=== PATIENT | female | born 1995 | race Caucasian/White ===

== ENCOUNTER → 2017-11-21 | Outpatient (CLI) | payer BC, OTHER ==
--- NOTE | 2017-11-21 21:45 | US ---
EXAMINATION TYPE: US venous doppler duplex LE RT DATE OF EXAM: 11/21/2017 3:38 PM COMPARISON: NONE CLINICAL HISTORY: M79.606 Right Leg pain. Right thigh warmness for 2 days SIDE PERFORMED: right TECHNIQUE: The lower extremity deep venous system is examined utilizing real time linear array sonog melissa with graded compression, doppler sonography and color-flow sonography. VESSELS IMAGED: External Iliac Vein (EIV) Common Femoral Vein Deep Femoral Vein Greater Saphenous Vein * Femoral Vein Popliteal Vein Small Saphenous Vein * Proximal Calf Veins (* superficial vessels) Right Leg: No evidence of DVT IMPRESSION: 1. Right lower extremity negative for deep venous thrombosis by ultrasound.
== END | disposition home or self-care (01) ==
LOC: RADUSWWP 15:16
PROVIDERS: ATTEND Pediatrics
DX: M79.604 Pain in right leg (principal)

== ENCOUNTER → 2019-02-19 | Outpatient (CLI) | payer OTHER ==
--- NOTE | 2019-02-19 09:51 | USB ---
Reason for exam: clinical finding. Indicated problem(s): pain in the right breast. Physical Findings: Nurse Summary: Patient complains of sharp pains right breast x 2-3 weeks (nurse galina). US Breast RT Right complete breast ultrasound includes all four quadrants, the retroareolar region and axilla. Finding demonstrates no cystic or solid lesion seen. Benign appearing prominent 1.1cm lymph node in the axilla with uniform cortex. These results were verbally communicated with the patient and result sheet given to the patient on 02/19/19. ASSESSMENT: Benign, BI-RAD 2 RECOMMENDATION: Routine screening mammogram of both breasts at age 38. (or sooner if clinically indicated) Manage on a clinical basis with regard to right breast pain.
== END | disposition home or self-care (01) ==
LOC: RADUSWWP 08:50
PROVIDERS: ATTEND Pediatrics
DX: N64.4 Mastodynia (principal)

== ENCOUNTER → 2021-08-01 | Outpatient (CLI) | payer BC ==
--- NOTE | 2021-08-02 08:24 | XR ---
EXAMINATION TYPE: XR chest 2V DATE OF EXAM: 08/01/2021 COMPARISON: 03/28/2012 TECHNIQUE: PA and lateral views submitted. HISTORY: Shortness of breath FINDINGS: The lungs are clear and there is no pneumothorax, pleural effusion, or focal pneumonia. Heart size mildly prominent. No overt failure. Mild coarsening of the interstitium. IMPRESSION: 1. Mild coarsened interstitium may be related to reduced inspiration rather than bronchitis or early viral bronchiolitis correlate clinically..
== END | disposition home or self-care (01) ==
LOC: RADXRMAIN 15:54
PROVIDERS: ATTEND Pediatrics
DX: R06.02 Shortness of breath (principal)
CPT/HCPCS: 71046

== ENCOUNTER → 2022-08-09 | Outpatient (CLI) | payer BC ==
[2022-08-09 13:25] VITALS: BP 135/89; PULSE 111; TEMP 99.8; BMI 46.0
--- NOTE | 2022-08-09 15:35 | P.HPBAR ---
Bariatric H&P - History & Physicial H&P Date: 08/09/22 History & Physicial: Visit/CC: initial clinic visit Patient initial contact: Initial weight: Initial weight in pounds: Height: 5 ft 4.25 in Initial BMI: Last weight: Current weight: 122.47 kg Current weight in pounds: 270.00 Current BMI: 46.0 [place] body weight (based on NIH guidelines): 54.998 kg Excess body weight loss: The patient is a 27 year-old F who presents for Bariatric Assessment. Patient presents today to discuss bariatric surgery options. The patient comes in interested in sleeve gastrectomy. The patient apparently has a friend of the family that had a sleeve gastrectomy recently. Her BMI is 46. No tobacco use. Patient with past history of asthma and irritable bowel syndrome. Patient says she does have pauses when she is breathing at night during sleep and has been told she needs a sleep study. She's tried a variety of diets and also medications including Adipex contrave, and seccenda. She has had minimal weight loss with those. Denies heartburn. No DVT history. Only abdominal surgery lap aroscopic cholecystectomy. Heart rate today slightly elevated. Review of Systems The patient denies any acute changes in vision or hearing, no dysphagia or odynophagia, no chest pain or shortness of breath, no dysuria or hematuria, no headache, no runny nose, no rectal bleeding or melena, no unexplained weight loss Past Medical History Past Medical History: Asthma History of Any Multi-Drug Resistant Organisms: None Reported Past Surgical History: No Surgical Hx Reported Additional Past Surgical History / Comment(s): luis lee 2014 Past Anesthesia/Blood Transfusion Reactions: No Reported Reaction Past Psychological History: No Psychological Hx Reported Smoking Status: Never smoker Past Alcohol Use History: None Reported Past Drug Use History: None Reported Surgical - Exam Vital Signs Temp Pulse BP 99.8 F H 111 H 135/89 08/09/22 13:18 08/09/22 13:18 08/09/22 13:18 Physical exam: General: Well-developed, well-nourished HEENT: Normocephalic, sclerae nonicteric Abdomen: Nontender, nondistended Extremities: No edema Neuro: Alert and oriented Bariatric Assessment & Plan (1) Morbid obesity with BMI of 45.0-49.9, adult Narrative/Plan: 27-year-old female with morbid obesity. Patient is interested in sleeve gastrectomy at this time. Patient is a good candidate for that surgical procedure. We discussed the risks benefits and average weight loss of both gastric bypass in sleeve gastrectomy in detail. We discussed that sleep study would be potentially beneficial and we'll try to have that arranged for her. Patient will require preoperative upper endoscopy and preoperative medical clearance from her primary care physician. She will return to the office after EGD to discuss surgical risks in even further detail. Status: Acute Bariatric Checklist Checklist: Plan: Checklist: EGD: 1. Hiatal hernia: 2. H. Pylori: HgbA1c: Vitamin D: Smoking: Never smoker Primary care physician referral: Psychiatry clearance: Cardiology clearance: Sleep study: Diet journal: VTE risk score: VTE risk level: Rehab needs at discharge:
== END | disposition home or self-care (01) ==
LOC: BARWHC3 12:46
PROVIDERS: ATTEND Surgery
DX: E66.01 Morbid (severe) obesity due to excess calories (principal); Z68.42 Body mass index [BMI] 45.0-49.9, adult
CPT/HCPCS: 99211

== ENCOUNTER → 2022-08-13 | Outpatient (CLI) | payer BC ==
[2022-08-13 14:42] LABS: HCT 37.2 % (37.2-46.3); MCHC 32.3 g/dL (32.0-37.0); MCV 83.6 fL (80.0-97.0); Mean Platelet Volume 9.9 fL (9.5-12.2); NRBC Per 100 WBC 0 /100 WBCS (0.0-0.0); Platelet Count 413 X 10*3/uL (140-440); RBC 4.45 X 10*6/uL (4.10-5.20); RDW 13.5 % (11.5-14.5); WBC 7.07 X 10*3/uL (4.50-10.00)
[2022-08-13 14:53] LABS: African American GFR (CKD) 145.6 (60.0-200.0); Albumin 4.2 g/dL (3.8-4.9); Albumin/Globulin Ratio 1.46 (1.60-3.17); Anion Gap 9.7 mmol/L (10.00-18.00); BUN/Creat Ratio 16.07 Ratio (12.00-20.00); Blood Urea Nitrogen 9.1 mg/dL (9.0-27.0); Calcium 8.9 mg/dL (8.7-10.3); Carbon Dioxide 24.1 mmol/L (20.0-27.5); Globulin 2.9 g/dL (1.6-3.3); Non-African American GFR(CKD) 125.6 (60.0-200.0); Potassium 4.5 mmol/L (3.5-5.5); Total Bilirubin 0.4 mg/dL (0.30-1.20); Total Protein 7.1 g/dL (6.2-8.2)
[2022-08-16 06:42] LABS: Anabasine Urine <2.0 ng/mL (<2.0)
== END | disposition home or self-care (01) ==
LOC: LABWHC1 09:02
PROVIDERS: ATTEND Surgery
DX: Z71.51 Drug abuse counseling and surveillance of drug abuser (principal); E66.01 Morbid (severe) obesity due to excess calories; K90.89 Other intestinal malabsorption; E55.9 Vitamin D deficiency, unspecified
CPT/HCPCS: 36415; 80053; 80323; 82306; 82607; 82746; 83036; 83540; 84425; 85027; 93005

== ENCOUNTER 2022-09-18 10:11 | Day surgery (SDC) | payer BC ==
[~2022-09-18 10:11] MED LIST: LACTATED RINGERS 1,000 ML IV SCH; LIDOCAINE 1% (10MG/ML) FOR IV START INTRADERMA PRN
[2022-09-18 10:47] VITALS: RESP 18; TEMP 98.1
[2022-09-18] MEDS ORDERED: MIDAZOLAM 2 MG/2 ML VIAL ONE (11:23)
[2022-09-18] MEDS ORDERED: fentaNYL (PF) 50 MCG/ML 2 ML AMP ONE (11:23)
[2022-09-18] MEDS ORDERED: PROPOFOL 10 MG/ML 20 ML VIAL IV ONE (11:23)
[2022-09-18] MEDS ORDERED: LIDOCAINE 2% INJ 20 MG/ML (2 ML VIAL) ONE (11:23)
--- NOTE | 2022-09-18 11:27 | P.GSHP ---
History of Present Illness H&P Date: 09/18/22 Chief Complaint: GERD, presurgical 27-year-old female here for upper endoscopy. Patient recently seen in the bariatric center. Recent testing did confirm sleep apnea. No nausea or vomiting. No dysphagia. Past Medical History Past Medical History: Asthma History of Any Multi-Drug Resistant Organisms: None Reported Past Surgical History: No Surgical Hx Reported Additional Past Surgical History / Comment(s): luis choly 2014 Past Anesthesia/Blood Transfusion Reactions: Motion Sickness, Postoperative Nausea & Vomiting (PONV) Past Psychological History: Depression Smoking Status: Never smoker Past Alcohol Use History: None Reported Past Drug Use History: None Reported Medications and Allergies Home Medications Medication Instructions Recorded Confirmed Type DULoxetine HCL [Cymbalta] 30 mg PO DAILY 08/09/22 09/18/22 History Albuterol Inhaler [Ventolin Hfa 1 puff INHALATION DAILY PRN 09/14/22 09/18/22 History Inhaler] Cetirizine HCl [Zyrtec] 10 mg PO QAM 09/14/22 09/18/22 History Allergies Allergy/AdvReac Type Severity Reaction Status Date / Time Sulfa (Sulfonamide Allergy Nausea & Verified 09/18/22 10:46 Antibiotics) Vomiting & Diarrhea Surgical - Exam Vital Signs Temp Pulse Resp BP Pulse Ox 98.1 F 86 18 153/83 97 09/18/22 10:45 09/18/22 10:45 09/18/22 10:45 09/18/22 10:45 09/18/22 10:45 Physical exam: General: Well-developed, well-nourished HEENT: Normocephalic, sclerae nonicteric Abdomen: Nontender, nondistended Extremities: No edema Neuro: Alert and oriented Assessment and Plan (1) GERD (gastroesophageal reflux disease) Narrative/Plan: Will proceed with upper endoscopy Current Visit: Yes Status: Acute Code(s): K21.9 - GASTRO-ESOPHAGEAL REFLUX DISEASE WITHOUT ESOPHAGITIS SNOMED Code(s): 556769468
--- NOTE | 2022-09-18 11:36 | P.PCN ---
Date of Procedure: 09/18/22 Procedure(s) Performed: Preoperative Dx: GERD, presurgical Postoperative Dx: Mild gastritis Procedure: EGD with Bx Anesthesia: Sedation Endoscopist: Dr. Méndez Specimens: None Endoscopic Procedure: The patient was on the endoscopy table in the left decubitus position. The Olympus gastroscope was inserted into the oropharynx and passed under direct visualization to the region of the third portion of the duodenum. From that point the scope was slowly withdrawn inspecting all surfaces carefully. There were no neoplastic inflammatory or polypoid lesions throughout the duodenum. The pylorus was widely patent. The stomach was carefully inspected. There was mild gastritis present. A biopsy of the antrum took place to rule out H. pylori. Retroflexion revealed a normal hiatus. The esophagus was then carefully examined. There were no neoplastic inflammatory or polypoid lesions throughout the visualized esophagus. The patient was then taken to the recovery room in stable condition per anesthesia guidelines. Recommendations: Resume diet. Await biopsy results. Follow-up bariatric clinic
[2022-09-18 11:59] VITALS: BP 104/72; PULSE 93
== END 2022-09-18 12:16 | disposition home or self-care (01) ==
LOC: ORWHC2ENDO 10:11
PROVIDERS: ATTEND Surgery
DX: K29.50 Unspecified chronic gastritis without bleeding (principal); K21.9 Gastro-esophageal reflux disease without esophagitis; J45.909 Unspecified asthma, uncomplicated; K91.0 Vomiting following gastrointestinal surgery; F32.A Depression, unspecified; Z79.51 Long term (current) use of inhaled steroids; Z79.899 Other long term (current) drug therapy; Z88.2 Allergy status to sulfonamides; T75.3XXD Motion sickness, subsequent encounter
CPT/HCPCS: 81025; 88305; 43239; J2250; J3010; J2704; J2001

== ENCOUNTER → 2022-10-02 | Outpatient (CLI) | payer BC ==
[2022-10-02 13:05] VITALS: BP 145/96; PULSE 98; TEMP 98; BMI 46.0
--- NOTE | 2022-10-02 15:29 | P.BASOAP ---
Subjective Progress Note Date: 10/02/22 Principal diagnosis: morbid obesity patient returns after recent EGD. EGD performed on 1121 showed mild gastritis. Patient did have her sleep study performed demonstrating sleep apnea. Patient remains interested in sleeve gastrectomy. Objective - Vital Signs Vital signs: Vital Signs Temp 98 F 10/02/22 13:03 Pulse 98 10/02/22 13:03 Resp BP 145/96 10/02/22 13:03 Pulse Ox FiO2 Intake & Output 10/01/22 10/02/22 10/02/22 18:59 06:59 18:59 Weight 122.47 kg - Exam Abdomen: Soft, nontender, nondistended Assessment/Plan (1) Morbid obesity with BMI of 45.0-49.9, adult Narrative/Plan: 27-year-old female with morbid obesity and associated comorbidities. Surgical consent form reviewed in detail. Patient remains interested in laparoscopic da Christina-assisted sleeve gastrectomy. Will schedule. The risks of bleeding, infection, stenosis, stricture, leak, abscess, fistula formation, peritonitis, poor weight loss, reflux, vomiting, conversion to an open procedure, aborting sleeve gastrectomy, GA, PE, DVT, and were discussed. The patient understands and wishes to proceed. Plan: Date: 10/02/22 Initial Weight: Initial BMI: Current Weight: 122.47 kg Current BMI: 46.0 Type of Surgery: Total Volume in Band: Previous Volume: Volume Removed: Volume Added: Band Size:
== END ==
LOC: BARWHC3 12:38
PROVIDERS: ATTEND Surgery
DX: E66.01 Morbid (severe) obesity due to excess calories (principal); Z88.2 Allergy status to sulfonamides; Z68.42 Body mass index [BMI] 45.0-49.9, adult
CPT/HCPCS: 99211

== ENCOUNTER → 2022-10-08 | Outpatient (CLI) | payer BC ==
[2022-10-08 10:54] VITALS: BMI 46.0
== END ==
LOC: BARWHC3 08:36
PROVIDERS: ATTEND Surgery
DX: Z71.3 Dietary counseling and surveillance (principal); E66.01 Morbid (severe) obesity due to excess calories; Z88.2 Allergy status to sulfonamides; Z68.42 Body mass index [BMI] 45.0-49.9, adult
CPT/HCPCS: 97804

== ENCOUNTER → 2022-12-21 | Outpatient (CLI) | payer BC ==
[2022-12-21 10:28] VITALS: BP 121/83; PULSE 110; RESP 12; TEMP 98.4; BMI 42.3
== END ==
LOC: BARWHC3 09:32
PROVIDERS: ATTEND Surgery
DX: Z09 Encounter for follow-up examination after completed treatment for conditions other than malignant neoplasm (principal); E66.01 Morbid (severe) obesity due to excess calories; Z98.84 Bariatric surgery status
CPT/HCPCS: 99211

== ENCOUNTER → 2023-01-22 | Outpatient (CLI) | payer BC ==
[2023-01-22 13:16] VITALS: BP 107/80; PULSE 95; RESP 16; TEMP 98.4; BMI 40.6
--- NOTE | 2023-01-22 16:44 | P.BASOAP ---
Subjective Progress Note Date: 01/22/23 Principal diagnosis: Morbid obesity Patient returns for recheck. Last seen 01/01. Right-sided pain resolved after she moved to bed at home. She has lost 5 pounds. The rash is resolved as well. Doing much better with protein intake. Objective - Vital Signs Vital signs: Vital Signs Temp 98.4 F 01/22/23 13:13 Pulse 95 01/22/23 13:13 Resp 16 01/22/23 13:13 BP 107/80 01/22/23 13:13 Pulse Ox FiO2 Intake & Output 01/21/23 01/22/23 01/22/23 18:59 06:59 18:59 Weight 108.409 kg - Exam Abdomen: Soft, nontender, nondistended, incisions clean and dry Assessment/Plan (1) Morbid obesity with BMI of 40.0-44.9, adult Narrative/Plan: Patient doing well at this time. Gradually continue advance diet. Increase activity as well. May start bariatric vitamins. Check one month labs. Follow- up 4-6 weeks. Plan: Date: 01/22/23 Initial Weight: 122.47 kg Initial BMI: 46.0 Current Weight: 108.409 kg Current BMI: 40.6 Type of Surgery: Vertical Sleeve Gastrectomy Total Volume in Band: Previous Volume: Volume Removed: Volume Added: Band Size:
== END ==
LOC: BARWHC3 13:04
PROVIDERS: ATTEND Surgery
DX: E66.01 Morbid (severe) obesity due to excess calories (principal); Z68.41 Body mass index [BMI] 40.0-44.9, adult; Z71.3 Dietary counseling and surveillance; Z91.048 Other nonmedicinal substance allergy status; Z88.2 Allergy status to sulfonamides
CPT/HCPCS: 97803; 99211

== ENCOUNTER → 2023-01-23 | Outpatient (CLI) | payer BC ==
[2023-01-23 10:33] LABS: HCT 37.4 % (37.2-46.3); HGB 11.3 g/dL (12.0-15.0); MCHC 30.2 g/dL (32.0-37.0); MCV 86.2 fL (80.0-97.0); NRBC Per 100 WBC 0 /100 WBCS (0.0-0.0); Platelet Count 431 X 10*3/uL (140-440); RBC 4.34 X 10*6/uL (4.10-5.20); RDW 14.2 % (11.5-14.5)
[2023-01-23 11:24] LABS: African American GFR (CKD) 142.8 (60.0-200.0); Albumin 4.4 g/dL (3.8-4.9); Albumin/Globulin Ratio 1.63 (1.60-3.17); BUN/Creat Ratio 15.33 Ratio (12.00-20.00); Blood Urea Nitrogen 9.2 mg/dL (9.0-27.0); Calcium 9.7 mg/dL (8.7-10.3); Globulin 2.7 g/dL (1.6-3.3); Non-African American GFR(CKD) 123.2 (60.0-200.0); Potassium 4.7 mmol/L (3.5-5.5); Total Bilirubin 0.3 mg/dL (0.30-1.20); Total Protein 7.1 g/dL (6.2-8.2)
== END | disposition home or self-care (01) ==
LOC: LABWHC1 06:52
PROVIDERS: ATTEND Surgery
DX: E55.9 Vitamin D deficiency, unspecified (principal); E66.01 Morbid (severe) obesity due to excess calories; K90.89 Other intestinal malabsorption
CPT/HCPCS: 36415; 80053; 82306; 82607; 82746; 83540; 84425; 85027

== ENCOUNTER → 2023-02-26 | Outpatient (CLI) | payer BC ==
[2023-02-26 13:23] VITALS: BP 132/87; PULSE 93; RESP 16; TEMP 98.7; BMI 39.3
--- NOTE | 2023-02-26 14:19 | P.BASOAP ---
Subjective Progress Note Date: 02/26/23 Principal diagnosis: morbid obesity 27-year-old female known to our service. She was last seen 01/22. Her labs were checked last visit. She just started taking her labs right around that time. Iron was low at 32. Previous iron value was 105 although patient states she is chronically low. Denies any heavy menstrual cycle or bleeding. Vitamin D was also low at 17.9. Patient states she has tried oral iron in the past and it gives her significant nausea. Patient stopped taking her antiacids. She is using high a enzymes at this time. She has lost 8 pounds. Still using the treadmill frequently. Objective - Vital Signs Vital signs: Vital Signs Temp 98.7 F 02/26/23 13:21 Pulse 93 02/26/23 13:21 Resp 16 02/26/23 13:21 BP 132/87 02/26/23 13:21 Pulse Ox FiO2 Intake & Output 02/25/23 02/26/23 02/26/23 18:59 06:59 18:59 Weight 104.78 kg - Exam Abdomen: Soft, nontender, nondistended Assessment/Plan (1) GERD (gastroesophageal reflux disease) Narrative/Plan: 27-year-old female doing well at this time. Patient's labs were reviewed. We'll plan re-checking her lab work next visit. We'll not start iron supplementation since she recently started her multivitamin. Continue monitoring for reflux symptoms. Continue dietary and exercise regimen. Plan: Date: 02/26/23 Initial Weight: 122.47 kg Initial BMI: 46.0 Current Weight: 104.78 kg Current BMI: 39.3 Type of Surgery: Vertical Sleeve Gastrectomy Total Volume in Band: Previous Volume: Volume Removed: Volume Added: Band Size:
== END ==
LOC: BARWHC3 12:58
PROVIDERS: ATTEND Surgery
DX: E66.01 Morbid (severe) obesity due to excess calories (principal); Z68.39 Body mass index [BMI] 39.0-39.9, adult; Z91.048 Other nonmedicinal substance allergy status; Z88.2 Allergy status to sulfonamides
CPT/HCPCS: 99211

== ENCOUNTER → 2023-04-09 | Outpatient (CLI) | payer BC ==
[2023-04-09 13:37] VITALS: BP 127/85; PULSE 76; RESP 16; TEMP 98.4; BMI 37.6
--- NOTE | 2023-04-09 13:54 | P.BASOAP ---
Subjective Progress Note Date: 04/09/23 Principal diagnosis: morbid obesity patient returns for evaluation. Doing well. She is due for a 3 month labs. She has lost 10 pounds since last visit. She does not take antiacids. She has taking papaya enzymes daily. She is exercising with treadmill 3 times per week. Objective - Vital Signs Vital signs: Vital Signs Temp 98.4 F 04/09/23 13:35 Pulse 76 04/09/23 13:35 Resp 16 04/09/23 13:35 BP 127/85 04/09/23 13:35 Pulse Ox FiO2 Intake & Output 04/08/23 04/09/23 04/09/23 18:59 06:59 18:59 Weight 100.244 kg - Exam Abdomen: Soft, nontender, nondistended Assessment/Plan (1) Morbid obesity with BMI of 40.0-44.9, adult Narrative/Plan: patient doing well after sleeve gastrectomy in November. Excellent weight loss. Continue exercise. Check three-month labs. Follow-up 6-8 weeks. Plan: Date: 04/09/23 Initial Weight: 122.47 kg Initial BMI: 46.0 Current Weight: 100.244 kg Current BMI: 37.6 Type of Surgery: Vertical Sleeve Gastrectomy Total Volume in Band: Previous Volume: Volume Removed: Volume Added: Band Size:
== END ==
LOC: BARWHC3 13:02
PROVIDERS: ATTEND Surgery
DX: E66.01 Morbid (severe) obesity due to excess calories (principal); Z71.3 Dietary counseling and surveillance; Z68.37 Body mass index [BMI] 37.0-37.9, adult; Z88.2 Allergy status to sulfonamides; Z91.048 Other nonmedicinal substance allergy status; Z98.84 Bariatric surgery status
CPT/HCPCS: 99211

== ENCOUNTER → 2023-04-09 | Outpatient (CLI) | payer BC ==
[2023-04-09 20:53] LABS: ALT 22 U/L (8-44); AST 12 U/L (13-35); Albumin 4.5 d/dL (3.8-4.9); Albumin/Globulin Ratio 1.55 Ratio (1.60-3.17); Alkaline Phosphatase 134 U/L (41-126); BUN/Creat Ratio 25.83 Ratio (12.00-20.00); Blood Urea Nitrogen 15.5 mg/dL (9.0-27.0); Calcium 9.5 mg/dL (8.7-10.3); Carbon Dioxide 23.4 mmol/L (21.6-31.8); Chloride 99 mmol/L (96-109); Globulin 2.9 d/dL (1.6-3.3); Glucose 130 mg/dL (70-110); Iron 32 UG/DL (50-170); Potassium 4.7 mmol/L (3.5-5.5); Sodium 137 mmol/L (135-145); Total Bilirubin <0.2 mg/dL (0.3-1.2); Total Protein 7.4 d/dL (6.2-8.2)
[2023-04-09 23:47] LABS: HCT 38.5 % (37.2-46.3); HGB 12.1 d/dL (12.0-15.0); MCH 26.5 pg (27.0-32.0); MCHC 31.4 d/dL (32.0-37.0); MCV 84.4 FL (80.0-97.0); Mean Platelet Volume 9.9 FL (9.5-12.2); NRBC Per 100 WBC 0 X 10*3/uL (0.00-0.01); Platelet Count 436 X 10*3/uL (140-440); RBC 4.56 X 10*6/uL (4.10-5.20); RDW 14.1 % (11.5-14.5); WBC 9.85 X 10*3/uL (4.50-10.00)
== END | disposition home or self-care (01) ==
LOC: LABWHC1 14:04
PROVIDERS: ATTEND Surgery
DX: E66.01 Morbid (severe) obesity due to excess calories (principal); K90.89 Other intestinal malabsorption; E55.9 Vitamin D deficiency, unspecified
CPT/HCPCS: 36415; 80053; 82306; 82607; 82746; 83540; 84425; 85027

== ENCOUNTER → 2023-06-18 | Outpatient (CLI) | payer BC ==
[2023-06-18 15:13] VITALS: BP 130/82; PULSE 82; RESP 16; TEMP 98.5; BMI 37.1
--- NOTE | 2023-06-18 15:27 | P.BASOAP ---
Subjective Progress Note Date: 06/18/23 Principal diagnosis: Morbid obesity Patient returns for recheck. She was last seen 04/09. She has lost 3 pounds since her last visit. Labs were checked last visit. Iron was low at 32. This was unchanged from before. She states she has been chronically low in the past as well. Patient with mild upper abdominal achiness in the midline. 3 times per week. Sometimes last for a few hours time. No nausea or vomiting. No GERD. History of previous cholecystectomy. Also complaining of bilateral breast pain at times. Objective - Vital Signs Vital signs: Vital Signs Temp 98.5 F 06/18/23 15:10 Pulse 82 06/18/23 15:10 Resp 16 06/18/23 15:10 BP 130/82 06/18/23 15:10 Pulse Ox FiO2 Intake & Output 06/17/23 06/18/23 06/18/23 18:59 06:59 18:59 Weight 98.883 kg - Exam Abdomen: Soft, nontender, nondistended Assessment/Plan (1) Morbid obesity with BMI of 40.0-44.9, adult Narrative/Plan: Overall patient doing fairly well. Some vague upper abdominal discomfort. Resume antiacids. Monitor symptoms. Plan recheck 6 weeks. Continue iron supplementation. Check 6 month labs next visit. Plan: Date: 06/18/23 Initial Weight: 122.47 kg Initial BMI: 46.0 Current Weight: 98.883 kg Current BMI: 37.1 Type of Surgery: Vertical Sleeve Gastrectomy Total Volume in Band: Previous Volume: Volume Removed: Volume Added: Band Size:
== END ==
LOC: BARWHC3 14:42
PROVIDERS: ATTEND Surgery
DX: E66.01 Morbid (severe) obesity due to excess calories (principal); Z98.890 Other specified postprocedural states; Z68.37 Body mass index [BMI] 37.0-37.9, adult; Z91.048 Other nonmedicinal substance allergy status; Z88.2 Allergy status to sulfonamides
CPT/HCPCS: 99211

== ENCOUNTER → 2023-12-10 | Outpatient (CLI) | payer BC ==
[2023-12-10 13:05] VITALS: BP 109/78; PULSE 71; RESP 16; TEMP 98.2; BMI 35.4
--- NOTE | 2023-12-10 16:02 | P.BASOAP ---
Subjective Progress Note Date: 12/10/23 Principal diagnosis: Morbid obesity Patient returns for recheck. Doing well since last visit. Had labs checked recently after iron infusion and iron level was up to 126. She has lost 6 more pounds. Current weight 208. BMI 35. She tried stopping her PPI in the past and had some abdominal discomfort and started it back up again. Has done well. No reflux. Objective - Vital Signs Vital signs: Vital Signs Temp 98.2 F 12/10/23 12:52 Pulse 71 12/10/23 12:52 Resp 16 12/10/23 12:52 BP 109/78 12/10/23 12:52 Pulse Ox FiO2 Intake & Output 12/09/23 12/10/23 12/10/23 18:59 06:59 18:59 Weight 94.347 kg - Exam Abdomen: Soft, nontender, nondistended Assessment/Plan (1) Morbid obesity with BMI of 40.0-44.9, adult Narrative/Plan: Patient doing well at this time. Continue dietary and exercise regimen. Will plan follow-up in 6 months. Check annual lab work including iron at that time. Start every other day antiacids for now. Plan: Date: 12/10/23 Initial Weight: 122.47 kg Initial BMI: 46.0 Current Weight: 94.347 kg Current BMI: 35.4 Type of Surgery: Vertical Sleeve Gastrectomy Total Volume in Band: Previous Volume: Volume Removed: Volume Added: Band Size:
== END ==
LOC: BARWHC3 12:45
PROVIDERS: ATTEND Surgery
DX: E66.01 Morbid (severe) obesity due to excess calories (principal); Z68.41 Body mass index [BMI] 40.0-44.9, adult; Z71.3 Dietary counseling and surveillance; Z91.048 Other nonmedicinal substance allergy status; Z88.2 Allergy status to sulfonamides
CPT/HCPCS: 99211